=== PATIENT | female | born 1955 | race Caucasian/White ===

== ENCOUNTER 2019-01-28 09:30 | Outpatient (RCR) | payer MEDICARE, SELFPAY ==
--- NOTE | 2019-01-15 09:42 | HP.OTEVAL_ITS ---
Patient's Visit Information KIERAN CRAWLEY is a 63 year old F, referred to Occupational Therapy by Gennaro Lee PA-C, with a diagnosis of left thumb dislocation. Date of Evaluation: 01/15/19 Occupational Therapist: IRENE Aguilar/Ahmet, CHT - Subjective Subjective: This 63 year old female was seen for inital OT eval following a left thumb dislocation. Pt states she fell down the steps and suffered a open thumb dislocation on January 02, 2019. Pt was taken to ER, finger set and open wound closed. - Pain left hand 2 Pain Intensity Range: 1, 8 - ROM CMC: right 5 left 5 MP: right 50 left 30 IP: right 80 left 0 MP: right 80 left 80 PIP: right IF 105 left 100 DIP: right IF 50 left 50 - Strength Dust Collector Attendant: right 45# left NT Lateral Pinch: right 14# left NT Tripod Pinch: right 14# left NT - Edema Other: right thumb 6.3 left 7.2 - Sensation Thumb: right 3.84 left 4.08 Index: right 3.84 left 3.84 Middle: right 3.84 left 3.84 Ring: right 3.84 left 3.84 Little: right 3.84 left 3.84 - Goals Goal:: PT will demo an increase in assignment agent strength by 20# to increase independent with basic occupations of daily living to return pt to PLOF by D/C. Pt will demo an increase in lateral and tripod pinch by 2# to increase pts independent with opening baggies, containers at PLOF by D/C. Goal:: Pt will demo a increase in left thumb ROM of IP and MPJ by 20* or greater to regain FMS at ind. level by d/c. Goal:: Pt will report pain no greater than 1/10 with use of affected hand with BADLs and IADLs by d/c. Goal:: Pt will demo the ability to form a composite fist to hold and receive 10 coins without dropping coins/ and coin manipulation/money mtg. tasks by D/C. Goal:: pt will demo a reduction in monofilament testing indicating increase in pts sensory return to decrease saftey concerns by d/c Goal:: Pt will demo a decrease is scar sensitivity to tolerate use of left hand for ADls and IADLs by D/c. - Rehabilitation General Assessment: Pt demo with limited left thumb ROM and weakness. pt demo with hypersensitivity through thumb and IF as well as a decreased sensation to the ulnar side of her left thumb distal to IPJ. the limitations have made pt dep. on her spouse for ADLS and IADls. pt would benefit from skilled OT serv ices 2-3x week for 6 weeks to return pt to PLOF. This session pt was ed. in scar mtg, desenstization and AROM ex. pt was given handout and demo understanding of HEP. Pt agree to POC. Rehabilitation Potential: Good - Anticipated Interventions Anticipated Interventions: A/AAROM/PROM, Strengthening, Edema Control, Desensitization, Sensory Retraining, Wound Care, Modalities, Orthoses, Joint Protection/Energy Conservation, Fine Motor Coord/Jono - Visit Plan Frequency: 2-3x /Week Duration: 6 Weeks TEXT: Thank you for the opportunity to evaluate your patient. For Medicare and Medicare HMO plans, please review the plan of care and approve it. It will need to be FAXED BACK to us at [phone] for Medicare purposes. Please let me know if there are questions or concerns regarding this plan of care. Physician Signature: Date:
--- NOTE | 2019-01-15 09:44 | HP.OTEVAL ---
Patient's Visit Information KIERAN CRAWLEY is a 63 year old F, referred to Occupational Therapy by Gennaro Lee PA-C, with a diagnosis of left thumb dislocation. Date of Evaluation: 01/15/19 Occupational Therapist: IRENE Aguilar/Ahmet, CHT - Subjective Subjective: This 63 year old female was seen for inital OT eval following a left thumb dislocation. Pt states she fell down the steps and suffered a open thumb dislocation on January 02, 2019. Pt was taken to ER, finger set and open wound closed. - Pain left hand 2 Pain Intensity Range: 1, 8 - ROM CMC: right 5 left 5 MP: right 50 left 30 IP: right 80 left 0 MP: right 80 left 80 PIP: right IF 105 left 100 DIP: right IF 50 left 50 - Strength Tank Cleaning Supervisor: right 45# left NT Lateral Pinch: right 14# left NT Tripod Pinch: right 14# left NT - Edema Other: right thumb 6.3 left 7.2 - Sensation Thumb: right 3.84 left 4.08 Index: right 3.84 left 3.84 Middle: right 3.84 left 3.84 Ring: right 3.84 left 3.84 Little: right 3.84 left 3.84 - Quick DASH-Disab of Arm,Shoulder& Hand Quick DASH Score: 100.0000 - Goals Goal:: PT will demo an increase in cold water machine operator strength by 20# to increase independent with basic occupations of daily living to return pt to PLOF by D/C. Pt will demo an increase in lateral and tripod pinch by 2# to increase pts independent with opening baggies, containers at PLOF by D/C. Goal:: Pt will demo a increase in left thumb ROM of IP and MPJ by 20* or greater to regain FMS at ind. level by d/c. Goal:: Pt will report pain no greater than 1/10 with use of affected hand with BADLs and IADLs by d/c. Goal:: Pt will demo the ability to form a composite fist to hold and receive 10 coins without dropping coins/ and coin manipulation/money mtg. tasks by D/C. Goal:: pt will demo a reduction in monofilament testing indicating increase in pts sensory return to decrease saftey concerns by d/c Goal:: Pt will demo a decrease is scar sensitivity to tolerate use of left hand for ADls and IADLs by D/c. - Rehabilitation General Assessment: Pt demo with limited left thumb ROM and weakness. pt demo with hypersensitivity through thumb and IF as well as a decreased sensation to the ulnar side of her left thumb distal to IPJ. the limitations have made pt dep. on her spouse for ADLS and IADls. pt would benefit from skilled OT services 2-3x week for 6 weeks to return pt to PLOF. This session pt was ed. in scar mtg, desenstization and AROM ex. pt was given handout and demo understanding of HEP. Pt agree to POC. Rehabilitation Potential: Good - Anticipated Interventions Anticipated Interventions: A/AAROM/PROM, Strengthening, Edema Control, Desensitization, Sensory Retraining, Wound Care, Modalities, Orthoses, Joint Protection/Energy Conservation, Fine Motor Coord/Jono - Visit Plan Frequency: 2-3x /Week Duration: 6 Weeks TEXT: Thank you for the opportunity to evaluate your patient. For Medicare and Medicare HMO plans, please review the plan of care and approve it. It will need to be FAXED BACK to us at [phone] for Medicare purposes. Please let me know if there are questions or concerns regarding this plan of care. Physician Signature: Date:
--- NOTE | 2019-02-04 14:29 | HP.OT.NRP ---
HP - Discharge Summary - Patient Information KIERAN CRAWLEY was seen in my office for initial evaluation on 01/15/19. The following Plan of Care was established for this patient: Initial Frequency: 2-3x /Week Initial Duration: 6 Weeks Plan: cont POC - Anticipated Interventions Anticipated Interventions: A/AAROM/PROM, Strengthening, Edema Control, Desensitization, Sensory Retraining, Wound Care, Modalities, Orthoses, Joint Protection/Energy Conservation, Fine Motor Coord/Jono This patient was last seen in our office 01/28/19. Pertinent comments regarding their Occupational therapy will appear below: pt called in states she is going to have sx and cancelled apts. pt d/c at this time. At this point I will be discontinuing this patient from occupational therapy. I would be happy to see this patient again in the future if found appropriate by the physician. Thank you! Brenda Osei, OTR/L, CHT
== END 2019-01-28 19:00 | disposition home or self-care (01) ==
LOC: OT 09:30
PROVIDERS: Family Provider Family Medicine; PCP Family Medicine; Referring Provider Physician Assistant; Visit Provider Physician Assistant
DX: S63.125 Dislocation of interphalangeal joint of left thumb (principal)
CPT/HCPCS: 97035; 97166; 97530